=== PATIENT | female | born 1960 | race Caucasian/White ===

== ENCOUNTER 2018-02-28 18:11 | Emergency (ER) | payer BC ==
[2018-02-28] MEDS ORDERED: ONDANSETRON HCL IV 4 MG/2 ML VIAL IVP ONE (18:18)
[2018-02-28] MEDS ORDERED: MORPHINE SULFATE 10 MG/ML VIAL IVP ONE (18:18)
--- NOTE | 2018-02-28 18:25 | Emergency Department Record ---
History of Present Illness - General Chief Complaint: Abdominal Pain Stated Complaint: CHEST PAIN Time Seen by Provider: 02/28/18 18:17 Source: Patient Mode of Arrival: Ambulatory Limitations: No limitations - History of Present Illness Initial Comments: 58 yo female presents to ED for evaluation of epigastric pain symptoms that radiate to the chest and back that began approximately 7 hours ago. Patient reports similar symptoms previously however has never lasted this long. Patient denies fevers, chills, or recent illness. Patient denies fevers, chills , or urinary symptoms. Patient reports previous hysterectomy and appendectomy, reports that her gallbladder is still present. Patient also denies previous heart or lung problems. MD Complaint: Abdominal pain Onset/Timin -: Hour(s) Location: Epigastric Radiation: Back, Chest Severity: Moderate Quality: Aching Consistency: Constant Improves With: Nothing Worsens With: Nothing Associated Symptoms: Denies other symptoms - Related Data Patient : No Previous Rx's Medication Instructions Recorded Famotidine [Pepcid] 40 mg PO DAILY #30 tablet 02/28/18 Allergies Allergy/AdvReac Type Severity Reaction Status Date / Time codeine Allergy Severe ANAPHYLAXIS Unverified 01/13/18 14:48 hydrocodone bitartrate Allergy Severe HIVES Unverified 01/13/18 14:48 [From [place]] acetaminophen [From [place]] Allergy Mild HIVES Unverified 01/13/18 14:48 erythromycin base AdvReac Intermediate VOMITING Unverified 01/13/18 14:48 Review of Systems Constitutional: Denies: Chills, Fever, Malaise, Night sweats Eyes: Denies: Eye discharge, Eye pain ENT: Denies: Congestion, Ear pain, Epistaxis Respiratory: Denies: Cough, Dyspnea Cardiovascular: Reports: Chest pain. Denies: Dyspnea on exertion Endocrine: Denies: Fatigue, Heat or cold intolerance Gastrointestinal: Reports: Abdominal pain. Denies: Nausea, Vomiting Genitourinary: Denies: Incontinence, Retention Musculoskeletal: Denies: Arthralgia, Back pain, Gout, Joint swelling Skin: Denies: Bruising, Change in color Neurological: Denies: Abnormal gait, Confusion, Headache Psychiatric: Denies: Anxiety Hematological/Lymphatic: Denies: Anemia, Blood Clots Physical Exam - General General Appearance: Alert, Oriented x3, Cooperative, Anxious Limitations: No limitations - Head Head exam: Atraumatic, Normocephalic, Normal inspection Head exam detail: negative: Abrasion, Contusion, Ruelas's sign, General tenderness, Hematoma, Laceration - Eye Eye exam: Normal appearance. negative: Conjunctival injection, Periorbital swelling, Periorbital tenderness, Scleral icterus - ENT Ear exam: negative: Auricular hematoma, Auricular trauma Nasal Exam: negative: Active bleeding, Discharge, Dried blood, Foreign body Mouth exam: negative: Drooling, Laceration, Muffled voice, Tongue elevation - Neck Neck exam: Normal inspection. negative: Meningismus, Tenderness - Respiratory Respiratory exam: Normal lung sounds bilaterally. negative: Respiratory distress, Rhonchi, Stridor, Wheezes - Cardiovascular Cardiovascular Exam: Regular rate, Normal rhythm, Normal heart sounds - GI/Abdominal GI/Abdominal exam: Soft, Tenderness (TTP RUQ, epigastric region on examination, no rebound, guarding, or peritoneal signs on examination.). negative: Pulsatile mass, Rebound, Rigid - Rectal Rectal exam: Deferred - exam: Deferred - Extremities Extremities exam: Normal inspection. negative: Calf tenderness, Pedal edema, Tenderness - Back Back exam: Denies: CVA tenderness (R), CVA tenderness (L) - Neurological Neurological exam: Alert, Normal gait, Oriented X3 - Psychiatric Psychiatric exam: Normal affect, Normal mood - Skin Skin exam: Normal color. negative: Abrasion Type of lesion: negative: abrasion Course - Reevaluation(s) Reevaluation #1: 02/28/18 18:25 EKG: NSR 86 Normal axis, normal intervals No acute ST-T wave changes Reevaluation #2: 02/28/18 19:02 Laboratory studies were reviewed, Lipase minimally elevated at 66. Labs are otherwise grossly unremarkable for an acute process. Patient was updated on all results, reports that her pain symptoms are improved. Awaiting CT imaging read. Reevaluation #3: 02/28/18 19:23 CT Abdomen and Pelvis: Gallbladder distention, no cholelithiasis or ductal dilatation No other acute process identified. Patient was updated on all results, reports that her pain symptoms are a 2/10 currently. Discussed performing repeat Troponin to exclude ACS, patient declined as her symptoms have been constant for 7 hours and she is feeling much better. Patient reports that she is ready to go home at this time. Patient was encouraged to return to ED for any recurrence of her symptoms or if she had any concerns. Medical Decision Making - Lab Data Result diagrams: 02/28/18 18:20 02/28/18 18:20 Disposition Disposition: Discharge Clinical Impression: Epigastric abdominal pain Disposition: Home, Self-Care Condition: (2) Stable Instructions: Abdominal Pain (ED) Additional Instructions: Return to ED if your symptoms worsen or if you have any concerns. Pepcid as directed. Follow-up with your family doctor in 3-5 days as directed. Prescriptions: Famotidine [Pepcid] 40 mg PO DAILY #30 tablet Forms: Patient Portal Access Time of Disposition: 19:37 Quality - Quality Measures Quality Measures: N/A - Blood Pressure Screening Does Patient Have Any of the Following: No Blood Pressure Classification: Hypertensive Reading Systolic Measurement: 159 Diastolic Measurement: 97 Screening for High Blood Pressure: < First Hypertensive BP, F/U Documented > [ [id number]] First Hypertensive Follow-up Interventions: Referral to alternative/primary care provider.
[2018-02-28] MEDS ORDERED: 0.9 % SODIUM CHLORIDE 1000ML 1,000 ML IV SCH (18:30)
[2018-02-28 18:37] LABS: BASO % 0.9 % (0-6); EOS % 1.9 % (0-6); GRAN % 61.3 % (47-80); HEMATOCRIT 40.5 % (35.0-47.0); HEMOGLOBIN 13.3 gm/dl (11.6-16.0); LYMPH % 27.5 % (16-45); MEAN CORPUSCULAR HEMOGLOBIN 29.9 pg (27-33); MEAN CORPUSCULAR HGB CONC 32.8 g/dl (32-36); MEAN PLATELET VOLUME 10.3 fl (7.4-10.4); MONO % 8.4 % (0-9); PLATELET COUNT 332 K/uL (130-400); RED BLOOD COUNT 4.45 M/uL (3.80-5.40); RED CELL DISTRIBUTION WIDTH 13.2 % (11.5-14.5); WHITE BLOOD COUNT W/O DIFF 6.9 K/uL (4.2-12.2)
[2018-02-28 18:52] LABS: BLOOD UREA NITROGEN 16 mg/dL (6-20); CREATININE 0.9 mg/dL (0.5-0.9); EST GLOMERULAR FILTRATION RATE > 60 mL/min; TOTAL PROTEIN 7.1 g/dL (6.6-8.7)
[2018-02-28 18:54] LABS: GLUCOSE,RANDOM 113 mg/dL (74-109)
[2018-02-28 18:57] LABS: ALB/GLOB RATIO 1.7 (1.1-1.8); ALBUMIN 4.5 g/dL (4.0-5.0); ALKALINE PHOSPHATASE 60 U/L (35-104); ALT/SGPT 21 U/L (<33); AST/SGOT 18 U/L (10.0-35.0); LIPASE 66 U/L (13-60)
--- NOTE | 2018-03-01 23:03 | CT SCAN REPORT ---
EXAM: CT SCAN ABDOMEN/PELVIS W CONTRAST HISTORY: EPIGASTRIC PAIN. TECHNIQUE: Sequential axial images were obtained from the diaphragms through the ischiorectal fossa after the intravenous administration of 100 mL of Omnipaque-300 contrast material. FINDINGS: The visualized lung bases appear normal. Heart and pericardium appear normal. There is mild gallbladder distention. No cholelithiasis. The liver appears homogeneous. The pancreas and spleen appear normal. The adrenal glands and kidneys appear normal. The urinary bladder appears normal. The uterus and adnexal structures are normal. The small bowel appears normal. There is colonic diverticulosis without evidence of diverticulitis. The osseous structures are grossly unremarkable. IMPRESSION: NO ACUTE ABDOMINAL OR PELVIC DISEASE PROCESS. THERE IS MILD GALLBLADDER DISTENTION. NO CHOLELITHIASIS OR DUCTAL DILATATION. JOB NUMBER: [id number] [facility]
== END 2018-02-28 19:51 | disposition home or self-care (01) ==
LOC: ER 18:11
DX: R10.13 Epigastric pain (principal); K82.8 Other specified diseases of gallbladder; R07.9 Chest pain, unspecified; M54.9 Dorsalgia, unspecified; Z87.891 Personal history of nicotine dependence
CPT/HCPCS: 99284 ×2; 96374; 83690; 85025; 80053; 84484; 74177; 93005; 93010; Q9967; J2405; J2270; J7030

== ENCOUNTER 2018-03-31 07:46 | Day surgery (SDC) | payer BC ==
[~2018-03-31 07:46] MED LIST: ACETAMINOPHEN 1,000 MG/100 ML BTL IV ONE; FAMOTIDINE 20MG TABLET PO ONE; MECLIZINE 25 MG TABLET PO ONE; METOCLOPRAMIDE 10 MG TABLET PO ONE
[2018-03-31] MEDS ORDERED: NEOSTIGMINE 1 MG/1 ML,10ML VIAL IV ONE (07:47)
[2018-03-31] MEDS ORDERED: ONDANSETRON HCL IV 4 MG/2 ML VIAL IVP ONE (07:47)
[2018-03-31] MEDS ORDERED: SUCCINYLCHOLINE 20 MG/ML 10ML IVP ONE (07:47)
[2018-03-31] MEDS ORDERED: BUPIVACAINE 0.25% W/EPI MPF 30ML VIAL IVP ONE (07:47)
[2018-03-31] MEDS ORDERED: SEVOFLURANE 250 ML INH ONE (07:47)
[2018-03-31] MEDS ORDERED: FENTANYL PF 100MCG/2ML VIAL IV ONE (07:47)
[2018-03-31] MEDS ORDERED: LIDOCAINE 2% MDV (20MG/ML) 20ML VIAL IV ONE (07:47)
[2018-03-31] MEDS ORDERED: DEXAMETHASONE 4 MG/ML 1ML VIAL IVP ONE (07:47)
[2018-03-31] MEDS ORDERED: HYDROMORPHONE HCL 2 MG/ML VIAL IV ONE (07:47)
[2018-03-31] MEDS ORDERED: ROCURONIUM BROMIDE 50MG/5ML VIAL IV ONE (07:47)
[2018-03-31] MEDS ORDERED: GLYCOPYRROLATE 0.2 MG/ML ML IV ONE (07:47)
[2018-03-31] MEDS ORDERED: KETOROLAC 30 MG/ML VIAL IVP ONE (07:47)
[2018-03-31] MEDS ORDERED: MIDAZOLAM HCL 2MG/2ML VIAL IV ONE (07:47)
[2018-03-31] MEDS ORDERED: PROPOFOL 10 MG/ML VIAL IV ONE (07:47)
--- NOTE | 2018-04-01 15:10 | Operative Note ---
DATE OF SURGERY: 03/31/2018 Surgeon: Toni Sumner DO PREOPERATIVE DIAGNOSIS: Cholelithiasis with chronic cholecystitis. POSTOPERATIVE DIAGNOSIS: Cholelithiasis with chronic cholecystitis. OPERATION: Laparoscopic cholecystectomy. Indication: The patient is a 58-year-old female who is having ongoing right subcostal postprandial pain. Imaging studies did reveal cholelithiasis with numerous gallstones present. We did discuss cholecystectomy versus medical management. Risks, benefits, and alternatives were discussed. Risks include bleeding, infection, ductal injury, possible conversion to open, postoperative bile leak. She understood this fully. PROCEDURE: Thereafter, consent was signed and questions answered. She was taken to the operating room and placed in a supine position. General anesthesia was administered per the department of anesthesia. The patient's abdomen was prepped and draped in the usual sterile fashion. Adequate timeout was performed. Her identify was confirmed. She did receive preoperative DVT prophylaxis. At this time, the infraumbilical region was anesthetized with a total of 3 mL of 0.25% Sensorcaine with epinephrine. A 2 cm infraumbilical incision was made. This was carried down bluntly to the anterior rectus fascia. This was incised. Johnnie clamps were placed on the fascial edges and brought up into the wound. Stay sutures of 0 Vicryl were placed. Posterior rectus sheath was identified and incised. The peritoneal cavity was entered bluntly. At this time, a 10 mm 0-degree lens was placed. The patient was rotated into reverse Trendelenburg with rotation to the left. Additional 5 mm epigastric and two 5 mm right subcostal ports were placed. The gallbladder was noted to be very tense and distended. It had dense omental and duodenal adhesions anteriorly. This was retracted in a cephalad and lateral direction. The anterior adhesions were wiped down bluntly. No thermal sources were used in the bowel. At this time, the hepatocystic triangle was thoroughly dissected out. It was noted to be a bit fibrotic secondary to chronic inflammatory changes. The cystic duct and cystic artery were clearly identified. The distal half of the gallbladder was released from the cystic plate as well elongating our retroductal window. We had excellent critical view of safety. The cystic artery was taken off with the Garrett harmonic. The cystic duct was triply clipped and cut in standard fashion. The gallbladder essentially peeled off the liver bed due to the inflammatory nature. On peeling this off, due to the tense nature, this did spill numerous small tiny gallstones as well as some bilious fluid. The gallbladder was then placed in an EndoCatch bag and broth out through the umbilical port. Right upper quadrant was then irrigated with approximately 2 liters of normal saline and aspirated until clear. Small gallstones were retrieved laparoscopically. Right upper quadrant was rechecked. There was a bit of oozing from the liver bed which was controlled with the Garrett harmonic. After that, there was no bile leaking, no bowel injury noted. The patient was leveled out. The pneumoperitoneum was released. All ports were removed. The fascia was closed with 0 Vicryl in a [id number] fashion. The skin at all 4 ports was closed with 4-0 Vicryl. The patient was taken to the recovery room in satisfactory condition. FINDINGS AT THE TIME OF SURGERY: Chronic cholecystitis. CC: EJ Abarca
== END 2018-03-31 12:07 | disposition home or self-care (01) ==
LOC: SUR 07:46
PROVIDERS: ATTEND Surgery
DX: K80.10 Calculus of gallbladder with chronic cholecystitis without obstruction (principal); K21.9 Gastro-esophageal reflux disease without esophagitis
CPT/HCPCS: J0330; J1885; J2405; J2710